=== PATIENT | male | born 1960 | race Caucasian/White ===

== ENCOUNTER 2016-11-28 10:35 | Inpatient (IN) | payer BC, OTHER ==
[2016-11-19 13:24] VITALS: BMI 31.0
--- NOTE | 2016-11-19 14:36 | DIAGNOSTIC IMAGING REPORT ---
CHEST PREADMISSION(PA/LAT) CLINICAL HISTORY: PAT preoperative evaluation COMPARISON STUDY: No previous studies for comparison. FINDINGS: The bones soft tissues and hemidiaphragms are normal. The cardiomediastinal silhouette is normal. The lungs are clear. The pulmonary vasculature is normal. IMPRESSION: Negative chest. Electronically signed by: Nelson Noble M.D. 11/19/2016 2:35 PM Dictated Date/Time: 11/19/2016 2:35 PM
[2016-11-19 15:04] LABS: BASO % 0.7 %; BASO ABS # 0.05 K/uL (0-0.2); COMPLETE YES; EOS % 5.4 %; HEMATOCRIT 42.1 % (42-52); IG% 0.1 %; LYMPH % 28.3 %; MEAN CELL VOLUME 90.3 fL (80-100); MEAN CORPUSCULAR HEMOGLOBIN 30.7 pg (25-34); MEAN PLATELET VOLUME 9.8 fL (7.4-10.4); MONO % 6.3 %; NEUT % 59.2 %; PLATELET COUNT 256 K/uL (130-400); RED BLOOD COUNT 4.66 M/uL (4.7-6.1); WHITE BLOOD COUNT 6.71 K/uL (4.8-10.8)
[2016-11-19 15:17] LABS: BUN/CREATININE RATIO 13.2 (10-20); CALCIUM 8.7 mg/dl (8.5-10.1); CREATININE 1.1 mg/dl (0.60-1.40)
[2016-11-19 15:24] LABS: URINE APPEARANCE CLEAR (CLEAR); URINE BILIRUBIN NEG (NEG); URINE COLOR DK YELLOW; URINE NITRITE NEG (NEG); URINE SPECIFIC GRAVITY 1.028 (1.000-1.030); UROBILINOGEN NEG (NEG)
[2016-11-19 15:27] LABS: MANUAL MICROSCOPIC REQUIRED? NO; REVIEW REQ? NO
[~2016-11-28] VITALS: Ht 188 cm; Wt 110.0 kg
[2016-11-28] VITALS (7 sets, daily range): BP systolic 120–163; BP diastolic 76–102; PULSE 57–76; TEMP 36.4–36.8; O2SAT 98–100; Ht 188 cm; Wt 110.0 kg
[~2016-11-28 10:35] MED LIST: CEFAZOLIN 2000 MG/60 ML D5W IV SCH; LACTATED RINGER'S 1000ML 1,000 ML IV SCH
[2016-11-28] MEDS ORDERED: ATROPINE SULFATE 0.1 MG/ML 5ML SYR IV PRN (11:45)
[2016-11-28] MEDS ORDERED: MoRPHine SULFATE 10 MG/ML CARP/VIAL IV PRN (11:45)
[2016-11-28] MEDS ORDERED: ONDANSETRON INJ 2 MG/ML 2 ML VIAL IV PRN ×2 (11:45→15:45)
[2016-11-28] MEDS ORDERED: EpHEDrine SULFATE INJ 50 MG/ML AMP IV PRN (11:45)
--- NOTE | 2016-11-28 12:36 | History and Physical ---
History & Physical Date Nov 28, 2016. Chief Complaint back and leg pain History of Present Illness The patient is a 56 year old male with complaints of Additional History Hepatic Disease: No Endocrine Disorder: No Kidney Disease: No Hypertension: No Heart Disease: No Bleeding Tendencies: No Infectious Diseases: No Allergies Coded Allergies: No Known Allergies (Unverified , 11/28/16) Home Medications No Active Prescriptions or Reported Meds Physical Examination Skin: warm/dry, no rash Eyes: normal inspection, EOMI, sclerae normal ENT: normal ENT inspection, pharynx normal Head: normocephalic, atraumatic Neck: supple, no adenopathy, trachea midline Respiratory/Chest: lungs clear, normal breath sounds, no respiratory distress Cardiovascular: regular rate, rhythm, no edema, no murmur Abdomen / GI: normal bowel sounds, non tender Back: normal inspection Extremities: normal inspection, normal range of motion Neurologic/Psych: no motor/sensory deficits, alert, normal reflexes, oriented x 3 Diagnosis lumbar stenosis Plan of Treatment removal inst L4-5 decompression fusion L5-S1
--- NOTE | 2016-11-28 12:36 | History & Physical Bridge Note ---
H&P Re-Evaluation Bridge Note: I have examined the patient, reviewed the History & Physical and in the interval since the performance of the History & Physical I have noted the following changes of clinical significance: No changes noted
[2016-11-28] MEDS ORDERED: BUPIVACAINE/EPINEPHRINE 0.5% MPF 1:200,000 30 ML VIAL ONE (13:05)
[2016-11-28] MEDS ORDERED: SODIUM CHLORIDE 0.9% PF 50 ML VIAL ONE (13:05)
[2016-11-28] MEDS ORDERED: BACITRACIN 50000 UNIT VIAL ONE (13:06)
[2016-11-28] MEDS ORDERED: MIDAZOLAM HCL 1 MG/ML 2ML VIAL ONE (13:11)
[2016-11-28] MEDS ORDERED: FENTANYL CITRATE INJ 50 MCG/1 ML 2 ML VIAL ONE ×3 (13:11→13:43)
[2016-11-28] MEDS ORDERED: HYDROmorphone INJ 2 MG/ML SYR/VIAL ONE (13:41)
[2016-11-28] MEDS ORDERED: ROCURONIUM BROMIDE 10 MG/ML 5 ML VIAL ONE (13:57)
[2016-11-28] MEDS ORDERED: PROPOFOL IV EMULSION 10 MG/ML 20 ML VIAL IV ONE (13:57)
[2016-11-28] MEDS ORDERED: EpHEDrine SULFATE 50MG/5ML SYR ONE ×2 (13:57→14:18)
[2016-11-28] MEDS ORDERED: DEXAMETHASONE SOD INJ 4 MG/ML VIAL ONE (13:57)
[2016-11-28] MEDS ORDERED: SUCCINYLCHOLINE CHLORIDE 20 MG/ML 10 ML VIAL IV ONE (13:57)
[2016-11-28] MEDS ORDERED: LIDOCAINE HCL 2% 2 ML VIAL (20MG/ML) ONE (13:57)
[2016-11-28] MEDS ORDERED: ONDANSETRON INJ 2 MG/ML 2 ML VIAL ONE (13:57)
[2016-11-28] MEDS ORDERED: SODIUM CHLORIDE 0.9% 1000ML 1,000 ML IV SCH (15:32)
--- NOTE | 2016-11-28 15:32 | [facility] Post Operative Brief Note ---
Immediate Operative Summary Operative Date Nov 28, 2016. Pre-Operative Diagnosis Lumbar Stenosis Post-Operative Diagnosis Lumbar Stenosis Procedure(s) Performed L4-S1 Lumbar decompression, Instrumented fusion, Interbody fusion L5-S1, Removal Hardware, Use of Infuse Surgeon Dr. Sharp Manager Multicultural Surgeon(s) Juan Carroll PA-C Estimated Blood Loss 400ML Findings stenosis Specimens A) Removed Hardware
--- NOTE | 2016-11-28 15:40 | DIAGNOSTIC IMAGING REPORT ---
LUMBAR SPINE, INTRAOPERATIVE FLUOROSCOPY HISTORY: L4-S1 decompression and fusion. FLUOROSCOPY TIME: 23 seconds. FINDINGS: Intraoperative fluoroscopy was provided for the lumbar spine. 2 fluoroscopic spot images were obtained. L4-S1 posterior decompression and fusion with pedicle screws and rods. The hardware appears intact. IMPRESSION: Fluoroscopy provided for a L4-S1 posterior decompression and fusion. Electronically signed by: Juan Sandoval M.D. 11/28/2016 3:38 PM Dictated Date/Time: 11/28/2016 3:38 PM
[2016-11-28] MEDS ORDERED: LORAZEPAM INJ 0.5 MG in SYRINGE 0 ML IV PRN (15:45)
[2016-11-28] MEDS ORDERED: NALOXONE HCL 0.4 MG/1 ML VIAL/CARP IV PRN ×2 (15:45)
[2016-11-28] MEDS ORDERED: MAGNESIUM HYDROXIDE SUSP 30 ML UDC PO PRN (15:45)
[2016-11-28] MEDS ORDERED: SOD PHOSPHATE/SOD BIPHOSPHATE ENEMA 132 ML BTL PR PRN (15:45)
[2016-11-28] MEDS ORDERED: DO NOT ADMINISTER FLU VACCINE PRN ×3 (15:45)
[2016-11-28] MEDS ORDERED: ACETAMINOPHEN 500 MG TAB PO PRN (15:45)
[2016-11-28] MEDS ORDERED: METOCLOPRAMIDE HCL INJ 5 MG/ML 2 ML VIAL IV PRN (15:45)
[2016-11-28] MEDS ORDERED: ALUMINUM/MAGNESIUM SUSP 30 ML UDC PO PRN (15:45)
[2016-11-28] MEDS ORDERED: PROMETHAZINE HCL INJ 12.5 MG in SODIUM CHLORIDE 0.9% 50ML 50 ML IV PRN (15:45)
[2016-11-28] MEDS ORDERED: DO NOT ADMINISTER PNEUMOCOCCAL VACCINE PRN ×2 (15:45)
[2016-11-28] MEDS ORDERED: hydrOXYzine HCL 25 MG TAB PO PRN (15:45)
[2016-11-28] MEDS ORDERED: ACETAMINOPHEN IV 100 ML IV PRN (15:45)
[2016-11-28] MEDS ORDERED: BISACODYL 10 MG SUPP PR PRN (15:45)
[2016-11-28] MEDS ORDERED: FAMOTIDINE 20 MG TAB PO PRN (15:45)
[2016-11-28] MEDS ORDERED: HYDROmorphone HCL 0.5MG/ML 50 ML CASSETTE ONE (15:59)
[2016-11-28] MEDS: FENTANYL CITRATE INJ 50 MCG/1 ML 2 ML VIAL IV PRN ×4 (16:00→16:20)
--- NOTE | 2016-11-28 16:40 | Anesthesiology Progress Note ---
Anesthesia Post Op Note Date & Time Nov 28, 2016 at 16:41 Vital Signs Pain Intensity: 3 Vital Signs Past 12 Hours Date Time Temp Pulse Resp B/P (MAP) Pulse Ox O2 Delivery O2 Flow Rate FiO2 11/28/16 16:25 36.7 60 18 136/84 98 Nasal Cannula 3 11/28/16 16:15 66 18 127/79 100 Mask 10 11/28/16 16:05 69 18 128/81 100 Mask 10 11/28/16 15:55 36.5 77 18 133/80 100 Mask 10 11/28/16 10:56 36.6 59 18 163/102 98 Room Air Notes Mental Status: alert / awake / arousable, participated in evaluation Pt Amnestic to Procedure: Yes Nausea / Vomiting: adequately controlled Pain: adequately controlled Airway Patency, RR, SpO2: stable & adequate BP & HR: stable & adequate Hydration State: stable & adequate Anesthetic Complications: no major complications apparent
[2016-11-28] MEDS: HYDROmorphone HCL 0.5MG/ML 50 ML CASSETTE IV PRN ×2 (16:52→22:53)
[2016-11-28] MEDS: LACTATED RINGER'S 1000ML 1,000 ML IV SCH ×2 (18:08→21:53)
[2016-11-28] MEDS ORDERED: COUGH DROP (SUGAR FREE) LOZ 24 LOZ/1 BOX ONE (18:11)
[2016-11-28] MEDS ORDERED: NURSING DECISION MEDICATION ORDER SCH (18:15)
[2016-11-28] MEDS ORDERED: COUGH DROP (SUGAR FREE) LOZ 24 LOZ/1 BOX PO PRN (18:30)
--- NOTE | 2016-11-28 20:54 | OPERATIVE REPORT ---
DATE OF OPERATION: 11/28/2016 PREOPERATIVE DIAGNOSIS: Spinal stenosis L5-S1. 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 SURGEON: Dr. Sadi Sharp. MARKETING OPERATIONS CONSULTANT: Deep Carroll PA-C. Due to the complex nature of the procedure, the entire surgery was performed with the social work assistant of COLE Brizuela. The compliance assistant, under direct supervision, was involved in the actual performance of all aspects of the surgical procedure including hemostasis, tissue retraction and incision, instrument management, patient positioning, and wound closure. ANESTHESIA: General. DISPOSITION: The patient awakened and taken to PACU in stable condition. HISTORY OF PATIENT'S PROBLEMS: This is a 56-year-old male who presents with the above-mentioned diagnosis after failing an extensive course of nonoperative care, elected to undergo the above-mentioned procedure. Risks, benefits, pros, cons, and alternatives were outlined in detail preoperatively. DESCRIPTION OF PROCEDURE: The patient was met with preoperatively, case discussed and all questions were addressed. At that point, the patient was taken back to operative suite and after undergoing successful general intubation by the department of anesthesia was placed in prone position on Austin table atop a Matheus frame. All bony prominences were well padded and the eyes were inspected to ensure there was no external pressure placed upon them. At this point, lumbar spine was prepped and draped in normal sterile fashion. Sharp dissection with the assistance of Bovie cautery performed down to and exposing the interspinous implant lamina and transverse processes of L4, L5 and sacral ala bilaterally. I then proceeded to remove the interspinous implant at L4-5 fusion mass noting continued motion in the nonunion. I then performed a complete laminectomy of L5 and I ordered to address this foraminal disease, performed a facetectomy, and aggressive foraminotomy on the right completely decompress the exiting L5 nerve root. This created significant stability. Subsequently, we continued with the fusion. Pedicle screws were placed in L4, L5 and S1 levels bilaterally with the assistance of fluoroscopy and appropriate size gail provisionally placed. Through transforaminal approach on the right, a complete discectomy performed, endplates curetted to subcortical bleeding bone, and a 12 x 26 mm PEEK cage filled with Margie bone grafting tapped into position. The rods were then locked into final position bilaterally and the transverse processes of L4, L5 and sacral ala burred to subcortical bleeding bone. Infuse collagen sponge combined with Mastergraft and locally harvested morcellized autograft was placed in the posterior lateral gutters. A 7 flat FIDE drain was inserted. Incision was closed with #1 Vicryl in the fascia, 2-0 Vicryl subcutaneously, 4-0 Monocryl for final skin closure. Steri-Strips and sterile dressing placed. The patient was awakened and taken back to PACU in stable condition. I attest to the content of the Intraoperative Record and any orders documented therein. Any exceptions are noted below. KALINAD
[2016-11-28] MEDS: DOCUSATE SODIUM/SENNA 50/8.6MG TAB PO SCH (21:09)
[2016-11-28] MEDS: CEFAZOLIN IV 2,000 MG in DEXTROSE 5% 50ML 50 ML IV SCH (21:53)
[2016-11-28] MEDS: DEXAMETHASONE INJ 6 MG in SYRINGE 0 ML IV SCH (21:54)
[2016-11-29] VITALS (8 sets, daily range): BP systolic 110–157; BP diastolic 56–99; PULSE 58–78; TEMP 36.1–36.9; O2SAT 94–99
[2016-11-29] MEDS: LACTATED RINGER'S 1000ML 1,000 ML IV SCH (04:00)
[2016-11-29] MEDS: CEFAZOLIN IV 2,000 MG in DEXTROSE 5% 50ML 50 ML IV SCH (05:15)
[2016-11-29] MEDS ORDERED: NURSING VERBAL MED ORDER ONE (05:45)
[2016-11-29] MEDS ORDERED: DC PCA ONE (06:00)
[2016-11-29] MEDS ORDERED: HYDROmorphone INJ 1 MG/ML SYR IV PRN (06:00)
[2016-11-29 06:07] LABS: BASO % 0.1 %; BASO ABS # 0.01 K/uL (0-0.2); COMPLETE YES; HEMATOCRIT 34.7 % (42-52); IG% 0.2 %; LYMPH % 4.8 %; MEAN CELL VOLUME 91.6 fL (80-100); MEAN CORPUSCULAR HEMOGLOBIN 31.4 pg (25-34); MEAN CORPUSCULAR HGB CONC 34.3 g/dl (32-36); MONO % 5.4 %; NEUT % 89.5 %; PLATELET COUNT 211 K/uL (130-400); RED BLOOD COUNT 3.79 M/uL (4.7-6.1); WHITE BLOOD COUNT 12.49 K/uL (4.8-10.8)
[2016-11-29] MEDS: DEXAMETHASONE INJ 6 MG in SYRINGE 0 ML IV SCH ×2 (06:09→14:03)
[2016-11-29 06:42] LABS: BUN/CREATININE RATIO 20.9 (10-20); CALCIUM 8.2 mg/dl (8.5-10.1); CREATININE 0.9 mg/dl (0.60-1.40); POTASSIUM 4.4 mmol/L (3.5-5.1)
--- NOTE | 2016-11-29 08:27 | PROGRESS NOTE ---
DATE: 11/29/2016 SUBJECTIVE: He is postoperative day #1 lumbar decompression and fusion. He is doing well. No complaints. Back pain controlled. No radicular leg pain. FIDE drain output last shift was 100 mL. H&H this morning are 11.9 and 34.7, respectively. No other complaints. PHYSICAL EXAMINATION: GENERAL: He is seen in bed #320. No obvious distress. LOWER EXTREMITIES: Calves are soft, nontender bilaterally. He is neurologically intact. BACK: Lumbar dressing is clean, dry and intact. ASSESSMENT: Postop day #1 lumbar decompression and fusion. PLAN: Will start physical therapy today. DVT prophylaxis in the form of TEDs and SCDs. Maintain FIDE drain. Continue pain control.
[2016-11-29] MEDS: OXYCODONE HCL IR 5 MG TAB (IMMEDIATE RELEASE) PO PRN ×3 (10:24→23:14)
[2016-11-29] MEDS: LORAZEPAM 0.5 MG TAB PO PRN (14:02)
[2016-11-29] MEDS: DOCUSATE SODIUM/SENNA 50/8.6MG TAB PO SCH (21:02)
[2016-11-30] MEDS: POLYETHYLENE (MIRALAX) 17 GM PACK PO SCH ×4 (06:02→23:04)
[2016-11-30 06:32] VITALS: BP 150/94; PULSE 60; TEMP 36.4; O2SAT 98
[2016-11-30] MEDS: OXYCODONE HCL IR 5 MG TAB (IMMEDIATE RELEASE) PO PRN ×4 (07:40→21:34)
--- NOTE | 2016-11-30 08:55 | PROGRESS NOTE ---
DATE: 11/30/2016 He is postoperative day 2 lumbar decompression and fusion. He is doing well. He still has some numbness in his legs, but no radicular pain. Back pain is controlled. FIDE drain output is 65 mL over last shift. Yesterday in physical therapy he was able to ambulate about a 100 feet. He has no other complaints.
--- NOTE | 2016-11-30 08:57 | PROGRESS NOTE ---
DATE: 11/30/2016 ADDENDUM OBJECTIVE: GENERAL: He is sitting in a chair eating breakfast. VITAL SIGNS: Stable. He is in no obvious distress. MUSCULOSKELETAL: Lower extremities neurovascularly intact. Calves are soft, nontender. Lumbar dressing clean, dry and intact. ASSESSMENT: Postop day 2 lumbar decompression and fusion. PLAN: Will continue with physical therapy. Continue with pain control. DVT prophylaxis in the form of TEDs and SCDs. Maintain FIDE drain. Anticipate discharge home tomorrow.
[2016-11-30 10:26] VITALS: BP 150/94; PULSE 60; O2SAT 98
[2016-11-30] MEDS: LORAZEPAM 0.5 MG TAB PO PRN ×2 (10:38→23:07)
[2016-11-30 15:53] VITALS: BP 110/69; PULSE 61; TEMP 36.8; O2SAT 98
[2016-11-30] MEDS: DOCUSATE SODIUM/SENNA 50/8.6MG TAB PO SCH (20:48)
[2016-11-30 23:00] VITALS: BP 135/80; PULSE 78; TEMP 37.1; O2SAT 99
[2016-12-01] MEDS: POLYETHYLENE (MIRALAX) 17 GM PACK PO SCH ×2 (05:29→12:42)
[2016-12-01] MEDS: OXYCODONE HCL IR 5 MG TAB (IMMEDIATE RELEASE) PO PRN ×2 (06:43→12:43)
[2016-12-01 06:47] VITALS: BP 131/83; PULSE 71; TEMP 37.1; O2SAT 96
[2016-12-01] MEDS ORDERED: RXC5 PO (07:35)
--- NOTE | 2016-12-01 07:36 | Discharge Instructions ---
Discharge Instructions Date of Service Dec 01, 2016. Admission Reason for Admission: Lumbar Spinal Stenosis Discharge Discharge Diagnosis / Problem: stenosis Discharge Goals Goal(s): Improve function Activity Recommendations Activity Limitations: per Instructions/Follow-up section . Instructions / Follow-Up Instructions / Follow-Up ACTIVITY RECOMMENDATIONS: SELF CARE INSTRUCTIONS AFTER THORACIC/LUMBAR FUSIONS 1. You may walk to your tolerance. It is good exercise for your legs and back. Expect some back and intermittent leg aches and pains. 2. You may perform "counter-top" level activities (make a sandwich, hitesh with a project, etc.). 3. No bending or lifting of more than 10 pounds or back twisting of any nature (roll like a log when turning in bed). 4. You may ride in a car for 20-30 minutes at a time. No driving until after your first visit with your doctor. 5. Frequent changes of position and restricting sitting to 30 minutes at a time will help limit the amount of back spasms and stiffness you may experience. 6. You may discontinue the use of ambulatory aids (cane, crutches, etc.) once your strength and confidence allow. 7. You may machine guide base winder the shower and let water strike your incision when you arrive home at least once daily. Do not take a tub bath, sit in a hot tub or go into a swimming pool until after your first recheck in the office. SPECIAL CARE INSTRUCTIONS: VERY IMPORTANT TO READ AND REVIEW A. Your surgical incision has been closed with a cosmetic suture under the skin that will dissolve in about 6 weeks. In 14 days, you can use a pair of clean scissors and cut the suture that is left outside of the skin at the ends of your incision. 1. The small skin tapes can be removed 7 days after surgery if they have not fallen off by that point. 2. You may keep the wound open to air as much as possible to promote healing after post-op day number 5 unless told otherwise by your doctor. 3. If you think the wound looks like it is becoming infected (redness or worsening drainage) and/or you are experiencing fever, chill or worsening back pain and muscle spasms, contact the office so that we may evaluate you as soon as possible. B. Complications are uncommon, but please contact us if you have any signs or symptoms of: 1. wound infection (fever higher than 102.5 degrees F, redness, separation of wound, drainage, or increasing pain from the incision) 2. blood clots in legs (pain, swelling, redness and warmth in legs) 3. urinary tract infection (fever higher than 102.5 degrees F, burning upon urination or increased frequency of urination) 4. nerve problems (inability to walk on your toes or heels, numbness, loss of bowel or bladder control) 5. any other symptoms that concern you C. Please call the office at if you have any concerns or questions about your operation or recovery. D. No smoking! Smoking drastically decreases the chance of a solid fusion. E. Do not take any anti-inflammatory medications (Indocin, Advil, Motrin, Aspirin, Naprosyn, etc.) as these may inhibit the chance of a solid fusion. Tylenol is okay to take for pain. MANAGING PAIN AFTER SPINAL SURGERY 1. Narcotic medication is intended for short-term use and will be provided for surgical pain. Surgical pain usually lasts for a period of 4-6 weeks. Narcotic medication includes Percocet, Vicodin, Darvocet, Tylenol #3 or Lortab. 2. Longer-term pain is more appropriately treated with non-narcotic medication such as Tylenol ES. 3. Muscle spasm is not appropriately treated with narcotics. Muscle relaxers such as Soma, Flexeril or Skelaxin can be used along with Tylenol ES. 4. Remember that we all live with some "aches and pains". This is not unusual or uncommon after an injury or as we get older. a. Back pain is expected and may include muscle spasms for 4 to 6 weeks after surgery. The pain should gradually improve. If the pain worsens for no apparent reason, please contact the office. b. Intermittent leg pain may also be experienced and should not be concerned about unless it worsens for no apparent reason. If so, please contact the office. 5. We will provide appropriate medication within the normal guidelines of their prescribed use. We will also be very cautious and aware of potential abuse and extended duration of patients' medication needs. a. Pain medications are for your comfort and to assist with sleep and rest so that the tissue can heal. They are not provided in order to return to normal activity and should not be used through the day. To do so or worsening pain at night can result from ongoing tissue damage and development of tolerance to the prescribed medicine. 6. Please allow 2-3 days to process refills. Prescriptions will not be mailed but must be picked up at the office. FOLLOW UP VISIT: Keep your scheduled follow-up appointment. Any questions, please call the office at . Current Hospital Diet Patient's current hospital diet: Regular Diet Discharge Diet Recommended Diet: Regular Diet Procedures Procedures Performed: L4-S1 Lumbar decompression, Instrumented fusion, Interbody fusion L5-S1, Removal Hardware, Use of Infuse Pending Studies Studies pending at discharge: no Medical Emergencies . Who to Call and When: Medical Emergencies: If at any time you feel your situation is an emergency, please call 911 immediately. . Non-Emergent Contact Non-Emergency issues call your: Primary Care Provider . "Provider Documentation" section prepared by Sadi Sharp. . VTE Core Measure Inpt VTE Proph given/why not?: Mary Jo Wallace, SCD's
--- NOTE | 2016-12-01 07:49 | Anesthesiology Progress Note ---
Anesthesia Post Op Note Date & Time Dec 01, 2016 at 07:49 Vital Signs Vital Signs Past 12 Hours Date Time Temp Pulse Resp B/P (MAP) Pulse Ox O2 Delivery O2 Flow Rate FiO2 12/01/16 06:47 37.1 71 16 131/83 (99) 96 Room Air 11/30/16 23:10 Room Air 11/30/16 23:00 37.1 78 16 135/80 (98) 99 Room Air Notes Mental Status: alert / awake / arousable, participated in evaluation Pt Amnestic to Procedure: Yes Nausea / Vomiting: adequately controlled Pain: adequately controlled Airway Patency, RR, SpO2: stable & adequate BP & HR: stable & adequate Hydration State: stable & adequate Anesthetic Complications: no major complications apparent
[2016-12-01 09:33] VITALS: BP 131/83; PULSE 71; TEMP 37.1; O2SAT 96
[2016-12-01] MEDS: LORAZEPAM 0.5 MG TAB PO PRN (09:40)
--- NOTE | 2016-12-05 11:41 | DISCHARGE SUMMARY ---
ADMITTING DIAGNOSIS: Spinal stenosis L5-S1 with a failure of fusion L4-L5. DISCHARGE DIAGNOSIS: Same. OPERATIONS AND DATES: L4-5 and L5-S1 decompression and instrumented fusion. HOSPITAL COURSE AND TREATMENT: Mr. Amor Echols is a pleasant 56-year-old male with history and physical examination, radiographic images consistent with the above-mentioned diagnosis. For this reason, he was brought to the operating room on 11/28/2016 and underwent the above-mentioned procedure. This was performed by Dr. Sharp under general anesthesia. He left the operating room with FIDE drain and Frausto in place and was transferred to PACU in stable condition. He was placed on WEATHER FORECASTER for pain control, placed on GI and DVT prophylaxis and was sent to the floor. He was seen by physical therapy postoperative day #1 for ambulation and gait training. Throughout his hospital course, his calves remained supple and nontender. His abdomen remained soft and nontender as well. On 12/01/2016 he met discharge criteria and was discharged home. He is to resume his prehospital medications. He was also given oxycodone for pain control. Limitations were reviewed and he is to avoid any full bending at the waist, lifting anything heavier than 5 pounds. He should walk on a regular basis and he may begin showering once there is no drainage on the bandage. Also once there is no drainage he may begin showering. He is to see our office for followup in approximately 2 weeks out from surgery or sooner if he developed any fevers, chills, increased pain, drainage from the incision, fevers or chills.
== END 2016-12-01 13:30 | disposition home or self-care (01) | DRG 460 ==
LOC: C.ACU 10:35 → C.3E 11:21 → ENRESERV 16:16
PROVIDERS: ADMIT Orthopaedic Surgery Orthopaedic Surgery of the Spine; ATTEND Orthopaedic Surgery Orthopaedic Surgery of the Spine
PROC: 0SH004Z Insertion of Internal Fixation Device into Lumbar Vertebral Joint, Open Approach (ICD-10-PCS; principal; 2016-11-28 12:45)
PROC: 0SP004Z Removal of Internal Fixation Device from Lumbar Vertebral Joint, Open Approach (ICD-10-PCS; principal; 2016-11-28 12:45)
PROC: 0SG30AJ Fusion of Lumbosacral Joint with Interbody Fusion Device, Posterior Approach, Anterior Column, Open Approach (ICD-10-PCS; principal; 2016-11-28 12:45)
PROC: 0ST20ZZ Resection of Lumbar Vertebral Disc, Open Approach (ICD-10-PCS; principal; 2016-11-28 12:45)
PROC: 0SG307J Fusion of Lumbosacral Joint with Autologous Tissue Substitute, Posterior Approach, Anterior Column, Open Approach (ICD-10-PCS; principal; 2016-11-28 12:45)
DX: M48.07 Spinal stenosis, lumbosacral region (principal); M96.0 Pseudarthrosis after fusion or arthrodesis; Z96.698 Presence of other orthopedic joint implants